=== PATIENT | male | born 1990 | race Caucasian/White ===

== ENCOUNTER 2020-08-07 06:12 | Emergency (ER) | payer BC, OTHER ==
--- NOTE | 2020-08-07 06:34 | EDM.PDOC ---
ED HPI GENERAL MEDICAL PROBLEM - General Chief Complaint: Lower Extremity Injury/Pain Stated Complaint: LEFT LEG PAIN Time Seen by Provider: 08/07/20 06:34 - History of Present Illness INITIAL COMMENTS - FREE TEXT/NARRATIVE: 30-year-old male presents the emergency room with left leg pain. This started several days ago and is progressively getting worse seems to involve the medial calf on the left side. Patient's had a history of blood clots in the past mostly his right upper arm. Patient is currently only taking aspirin. He is not on any anticoagulation or blood thinners at this point. However, is taking aspirin daily. Patient denies any breathing difficulties or shortness of breath. Left Lower Leg Pain Score (Numeric/FACES): 3 - Related Data Allergies Allergy/AdvReac Type Severity Reaction Status Date / Time cat dander Allergy Severe Difficulty Verified 08/07/20 06:22 Breathing cefaclor [From Ceclor] Allergy Severe Rash Verified 08/07/20 06:22 Fish Containing Products Allergy Severe Difficulty Verified 08/07/20 06:22 Breathing Home Meds: Home Meds Apixaban [Eliquis] 2.5 mg PO BID #90 tablet 08/07/20 [Rx] Aspirin 81 mg PO DAILY 08/07/20 [History] Enoxaparin Sodium [Lovenox] 100 mg SQ Q12H #6 ml 08/07/20 [Rx] Warfarin [Coumadin] 5 mg PO ASDIRECTED #30 tab 08/07/20 [Rx] Past Medical History Cardiovascular History: Reports: Blood Clots/VTE/DVT Endocrine/Metabolic History: Reports: Obesity/BMI 30+ - Past Surgical History Musculoskeletal Surgical History: Reports: Other (See Below) Other Musculoskeletal Surgeries/Procedures:: Top right rib removed. Social & Family History - Tobacco Use Tobacco Use Status *Q: Never Tobacco User - Caffeine Use Caffeine Use: Reports: Coffee - Recreational Drug Use Recreational Drug Use: No Review of Systems - Review of Systems Review Of Systems: See Below Constitutional: Reports: No Symptoms Respiratory: Reports: No Symptoms Cardiovascular: Reports: No Symptoms GI/Abdominal: Reports: No Symptoms Genitourinary: Reports: No Symptoms Musculoskeletal: Reports: Leg Pain Skin: Reports: Other (He has some redness and swelling in the skin medial aspect left calf.) Neurological: Reports: No Symptoms ED EXAM, GENERAL - Physical Exam Exam: See Below Exam Limited By: No Limitations General Appearance: Alert, No Apparent Distress Ears: Normal External Exam, Normal Canal, Hearing Grossly Normal, Normal TMs Head: Atraumatic, Normocephalic Neck: Normal Inspection, Supple, Non-Tender, Full Range of Motion Respiratory/Chest: No Respiratory Distress, Lungs Clear, Normal Breath Sounds Cardiovascular: Regular Rate, Rhythm, No Murmur GI/Abdominal: Normal Bowel Sounds, Soft, Non-Tender Extremities: Other (Is redness tenderness and swelling medial aspect left calf. The redness extends up to the knee but then seems to stop there) Course - Vital Signs Last Recorded V/S: Last Vital Signs Temp 36.1 C 08/07/20 06:19 Pulse 72 08/07/20 06:19 Resp 18 08/07/20 06:19 BP 164/101 H 08/07/20 06:19 Pulse Ox 99 08/07/20 06:19 - Orders/Labs/Meds Labs: Laboratory Tests 08/07/20 08/07/20 08/07/20 Range/Units 06:53 06:53 06:53 WBC 5.61 (4.23-9.07) K/mm3 RBC 4.85 (4.63-6.08) M/mm3 Hgb 15.0 (13.7-17.5) gm/dl Hct 42.5 (40.1-51.0) % MCV 87.6 (79.0-92.2) fl MCH 30.9 (25.7-32.2) pg MCHC 35.3 (32.2-35.5) g/dl RDW Std Deviation 39.4 (35.1-43.9) fL Plt Count 180 (163-337) K/mm3 MPV 9.1 L (9.4-12.3) fl Neut % (Auto) 66.4 (34.0-67.9) % Lymph % (Auto) 21.9 (21.8-53.1) % [place] % (Auto) 8.6 (5.3-12.2) % Eos % (Auto) 2.9 (0.8-7.0) Baso % (Auto) 0.2 (0.1-1.2) % Neut # (Auto) 3.73 (1.78-5.38) K/mm3 Lymph # (Auto) 1.23 L (1.32-3.57) K/mm3 [place] # (Auto) 0.48 (0.30-0.82) K/mm3 Eos # (Auto) 0.16 (0.04-0.54) K/mm3 Baso # (Auto) 0.01 (0.01-0.08) K/mm3 PT 11.6 (9.7-12.0) SECONDS INR 1.09 APTT 25.1 (21.7-31.4) SECONDS Sodium 140 (136-145) mEq/L Potassium 4.3 (3.5-5.1) mEq/L Chloride 106 (98-107) mEq/L Carbon Dioxide 25 (21-32) mEq/L Anion Gap 13.3 (5-15) BUN 15 (7-18) mg/dL Creatinine 1.2 (0.7-1.3) mg/dL Est Cr Clr Drug Dosing 102.75 mL/min Estimated GFR (MDRD) > 60 (>60) mL/min BUN/Creatinine Ratio 12.5 L (14-18) Glucose 109 H (70-99) mg/dL Calcium 8.4 L (8.5-10.1) mg/dL Total Bilirubin 0.5 (0.2-1.0) mg/dL AST 34 (15-37) U/L ALT 73 H (16-63) U/L Alkaline Phosphatase 70 (46-116) U/L Total Protein 7.3 (6.4-8.2) g/dl Albumin 3.7 (3.4-5.0) g/dl Globulin 3.6 gm/dL Albumin/Globulin Ratio 1.0 (1-2) - Re-Assessments/Exams Free Text/Narrative Re-Assessment/Exam: 08/07/20 08:45 Ultrasound of the lower extremity shows a thrombophlebitis involving one of the varicosities. There is no findings of deep vein thrombosis. Given the patient's history of a prior DVT we will put him on prophylactic anticoagulation Eliquis 2.5 mg twice daily. I have discussed this with the patient and he understands he also agrees to return immediately to the emergency room if his condition worsens. He will be started on warm moist heat to the area. Because of the Eliquis we will not start anti-inflammatories. 08/07/20 09:24 Notified by the clinic pharmacy that they cannot fill the Eliquis because not covered on his insurance nor Xarelto. Warfarin however is covered. I discussed the situation with Joan the pharmacist in the coagulation clinic at [facility] in [place] her recommendation is to start Coumadin 10 mg daily tonight and tomorrow with an INR to be drawn on Wednesday and bridge with Lovenox as he is symptomatic in the meantime. Departure - Departure Time of Disposition: 08:46 Disposition: Home, Self-Care 01 Clinical Impression: Superficial thrombophlebitis of left leg - Discharge Information Prescriptions: Warfarin [Coumadin] 5 mg PO ASDIRECTED #30 tab Apixaban [Eliquis] 2.5 mg PO BID #90 tablet Enoxaparin Sodium [Lovenox] 100 mg SQ Q12H #6 ml Instructions: Thrombophlebitis Referrals: Sarah Ibarra PA-C [Primary Care Provider] - Forms: ED Department Discharge Additional Instructions: Return to the emergency room with any questions problems or worsening symptoms. Return if the pain swelling or redness gets worse. Ideally you would have been started on Eliquis this is an oral medication however your insurance company will not cover this. You will need to use Lovenox this is a subcutaneous injection every 12 hours until your Coumadin which is an oral anticoagulation takes effect. These prescriptions have been sent to the clinic pharmacy. You need close follow-up on Wednesday with your regular healthcare provider and also on Wednesday morning you should have some blood work done to see how the Coumadin is doing. Tonight take 2 Coumadin tablets a day or each 5 mg for a total of 10 mg and repeat this again tomorrow night. Have your blood work done Wednesday morning and then do not take the Coumadin until you are notified by the Coumadin clinic from [facility] of what to take. The Lovenox you will use subcutaneously there are injections. Twice daily. Follow-up in the clinic at the end of this week for recheck. Sepsis Event Note (ED) - Evaluation Sepsis Screening Result: No Definite Risk - Focused Exam Vital Signs: Vital Signs Temp Pulse Resp BP Pulse Ox 08/07/20 06:19 36.1 C 72 18 164/101 H 99
--- NOTE | 2020-08-07 08:04 | US ---
Left lower extremity deep venous ultrasound: Duplex and color Doppler evaluation was obtained of the left common femoral, proximal greater saphenous, superficial femoral, popliteal, posterior tibial and peroneal veins. Right common femoral vein was also evaluated. Comparison: No prior venous study is available. Findings: Varicosity is seen within the left calf which shows evidence of thrombosis compatible with superficial thrombophlebitis. Deep veins show normal phasic flow, augmentation and compression. Impression: 1. Superficial thrombophlebitis with the left calf varicosity. 2. No findings of deep venous thrombosis is seen within left lower extremity or within the right common femoral vein. Ordering physician was phoned this result prior to dictated report. Diagnostic code #3
== END 2020-08-07 09:30 | disposition home or self-care (01) ==
LOC: JD.ED 06:12
DX: I80.02 Phlebitis and thrombophlebitis of superficial vessels of left lower extremity (principal); E66.9 Obesity, unspecified; Z88.1 Allergy status to other antibiotic agents; Z91.013 Allergy to seafood; Z79.82 Long term (current) use of aspirin; Z79.01 Long term (current) use of anticoagulants; Z68.30 Body mass index [BMI] 30.0-30.9, adult; Z91.048 Other nonmedicinal substance allergy status
CPT/HCPCS: 36415; 80053; 85025; 85610; 85730; 93971-26-LT; 93971-LT; 99283; 99284-25